=== PATIENT | male | born 2000 | race Two or more races ===

== ENCOUNTER 2025-03-09 02:40 | Emergency (ER) | payer SELFPAY ==
[~2025-03-09] VITALS: Ht 172.7 cm; Wt 68.1 kg
[2025-03-09 03:10] VITALS: BP 128/79; PULSE 73; RESP 16; TEMP 98.8; O2SAT 99
[2025-03-09] MEDS: cefTRIAXone SOD 1,000 MG VL IM ONE (03:21)
--- NOTE | 2025-03-09 03:26 | ED.PDOC ---
Eye-HPI HPI Comments 24 y/o M presents with c/c throat pain, with blood-tinge mucus production. Patient endorses on 3-4x day history of symptoms following initial, unprovoked and atraumatic gradual onset. Additional onset of 'spitting' mucus with blood mixed in it. No reported known sick contact exposure or pertinent medical history, with exception of previous incidences of throat infections in the past. Denies any fever, chills, headache, cough, or further associated symptoms. Chief Complaint: Sore Throat Time Seen by MD: 03:15 Reviewed Notes: Nurses Notes, Medications, Allergies Allergies: Coded Allergies: NO KNOWN ALLERGIES (Unverified , 03/09/25) Home Meds Active Scripts Methylprednisolone (Medrol Dosepak) 4 Mg Hu, 4 MG PO UD for 6 Days, #21 TAB UAD Prov:LEXIVALERI Burgos [facility] 03/09/25 Amoxicillin & Pot Clavulanate (AUGMENTIN TABLET) 875 Mg Tb, 875 MG PO BID for 7 Days, #14 TAB Prov:VALERI ELLIOTT [facility] 03/09/25 Information Source: Patient Mode of Arrival: Ambulatory Timing: Days Duration: Since onset Prehospital treatment: None Quality: Pain, Discharge Onset: Spontaneous Throat Exposed to: None Last Tetanus: UTD Associated signs and symptoms: Discharge, Sore Throat Past Medical History PAST MEDICAL HISTORY: Denies Surgical History: Denies all surgeries Family History Family History: Unknown Social History Smoker: Non-Smoker Alcohol: Occasionally Drugs: Marijuana Lives In: Home All Other Systems: Reviewed and Negative (Comprehensive review of system are negative unless stated in HPI) Physical Exam General Appearance: No Apparent Distress, Normal HEENT: Pharynx Normal, TMs Normal, Other (right tonsil with grade 4, dry blood ulceration with some exudate; left erythematous; otherwise normal ENT inspection ) Neck: Full Range of Motion, Non-Tender, Normal, Normal Inspection Respiratory: Chest Non-Tender, Lungs Clear, No Accessory Muscle Use, No Respiratory Distress, Normal Breath Sounds Cardiovascular: No Edema, No JVD, No Murmur, No Gallop, Normal Peripheral Pulses, Regular Rate/Rhythm Breast Exam: Deferred Gastrointestinal: No Organomegaly, Non Tender, No Pulsatile Mass, Normal Bowel Sounds, Soft Genitalia: Deferred Pelvic: Deferred Rectal: Deferred Extremities: No calf tenderness, Normal capillary refill, Normal inspection, Normal range of motion, Non-tender, No pedal edema Musculoskeletal : Apperance: Normal Neurologic: Alert, machine technician II-XII nml as Tested, No Motor Deficits, Normal Affect, Normal Mood, No Sensory Deficits Cerebellar Function: Normal Reflexes: Normal Skin: Dry, Normal Color, Warm Lymphatic: No Adenopathy Was a procedure done? Was a procedure done?: No EENT DIFF Eye: N/A Ear: N/A Nose: N/A Mouth: N/A Sore Throat: Peritonsillar Abscess, Peritonsillar Cellulitis, Streptococcal, Viral Pharyngitis, Other (tonsillitis ) X-Ray, Labs, Meds, VS Vital Signs Date Time Temp Pulse Resp B/P (MAP) Pulse Ox O2 Delivery O2 Flow Rate FiO2 03/09/25 03:10 98.8 73 16 128/79 (95) 99 98.8 Current Medications Medications (Trade) Dose Ordered Sig/Geena Route Start Time Stop Time Status Last Admin Dexamethasone Sodium Phosphate (Decadron Injection) 10 mg ONCE ONCE IM 03/09/25 03:15 03/09/25 03:16 DC 03/09/25 03:21 Ceftriaxone Sodium (Rocephin) 1,000 mg ONCE ONCE IM 03/09/25 03:15 03/09/25 03:16 DC 03/09/25 03:21 X-Ray, Labs, Meds, VS Comment Patient given Decadron 10 mg IM, and Rocephin 1 g IM. Reports improvement requesting discharge at this time. Script trial of Augmentin and Medrol Dosepak advised to take medication as prescribed side effects discussed. Follow up with his PCP in 2-3 days as necessary Tylenol or Motrin as needed for pain or fever per labeled dosing instructions. ER return precautions given patient indicates understanding and agrees with discharge plan of care. Time of 1ST Reevaluation: 03:45 Reevaluation 1ST: Unchanged Time of 2ND Reevaluation: 03:27 Reevaluation 2ND: Improved Patient Education/Counseling: Diagnosis, Treatment, Prognosis, Need For Follow Up Family Education/Counseling: No Family Present SEPSIS Sepsis Screen Vital Signs Date Time Temp Pulse Resp B/P (MAP) Pulse Ox O2 Delivery O2 Flow Rate FiO2 03/09/25 03:10 98.8 73 16 128/79 (95) 99 98.8 Medications Medications Dose Ordered Sig/Geena Route Start Time Stop Time Status Last Admin Dose Admin Ceftriaxone Sodium 1,000 mg ONCE ONCE IM 03/09/25 03:15 03/09/25 03:16 DC 03/09/25 03:21 Dexamethasone Sodium Phosphate 10 mg ONCE ONCE IM 03/09/25 03:15 03/09/25 03:16 DC 03/09/25 03:21 Departure 1 Departure Time of Disposition: 03:27 Impression: Primary Impression: Acute tonsillitis Qualified Codes: J03.90 - Acute tonsillitis, unspecified Disposition: HOME / SELF CARE / HOMELESS Condition: Stable e-Prescriptions Methylprednisolone (Medrol Dosepak) 4 Mg Hu 4 MG PO UD for 6 Days, #21 TAB UAD Prov: VALERI ELLIOTT 03/09/25 Amoxicillin & Pot Clavulanate (AUGMENTIN TABLET) 875 Mg Tb 875 MG PO BID for 7 Days, #14 TAB Prov: VALERI ELLIOTT 03/09/25 Discharged With: Self Critical Care Note Critical Care Time?: No Stability Stability form required: No Heart Score Heart Score: Heart Score Response (Comments) Value History N/A 0 EKG N/A 0 Age N/A 0 Risk Factors N/A 0 Troponin N/A 0 Total 0 I personally scribed for ER ([email or web address]) on 03/09/25 at 03:26. Electronically submitted by Maxx Maxwell ([email or web address]). ER Mar 09, 2025 03:26 VALERI ELLIOTT Mar 09, 2025 03:32
[2025-03-09] MEDS ORDERED: AUG875T PO (03:32)
[2025-03-09] MEDS ORDERED: METH4PAK PO (03:32)
== END 2025-03-09 03:31 | disposition home or self-care (01) ==
LOC: ER 02:40
DX: J03.90 Acute tonsillitis, unspecified (principal); F12.90 Cannabis use, unspecified, uncomplicated; F10.90 Alcohol use, unspecified, uncomplicated; Z79.899 Other long term (current) drug therapy; Y90.9 Presence of alcohol in blood, level not specified
CPT/HCPCS: 96372; 99284; J0696; J1100